=== PATIENT | female | born 1990 | race Caucasian/White ===

== ENCOUNTER 2018-12-03 02:04 | Emergency (ER) | payer MEDICAID, OTHER ==
[~2018-12-03] VITALS: Ht 172.7 cm; Wt 123.0 kg
[~2018-12-03 02:04] MED LIST: IRON1CAP21 PO; PREN-88 PO; PRENATAL
[2018-12-03 02:07] VITALS: BP 137/62
== END 2018-12-03 08:25 | disposition left against medical advice (07) ==
LOC: ER 02:04
DX: R05 Cough (principal); R09.81 Nasal congestion; Z53.21 Procedure and treatment not carried out due to patient leaving prior to being seen by health care provider

== ENCOUNTER 2019-09-08 17:39 | Emergency (ER) | payer MEDICAID, OTHER ==
[~2019-09-08] VITALS: Ht 175.3 cm; Wt 105.0 kg
[2019-09-08] MEDS ORDERED: SODIUM CHLORIDE 0.9% 1,000 ML IV ONE (19:03)
[2019-09-08] MEDS ORDERED: ONDANSETRON HCL 4MG/2ML INJ IV STA (19:03)
[2019-09-08] MEDS ORDERED: ACETAMINOPHEN 325MG TABLET PO STA (19:03)
[2019-09-08 19:45] LABS: BASOPHILS % 0.3 % (0.0-2.0); EOSINOPHILS % 0.9 % (0.0-5.0); HEMATOCRIT. 42.4 % (36.0-48.0); HEMOGLOBIN. 13.9 g/dL (12.0-16.0); LYMPHOCYTES % 20.8 % (20.0-50.0); MEAN CORPUSCULAR HEMOGLOBIN 26.4 pg (28.0-32.0); MEAN CORPUSCULAR VOLUME 80.4 fL (81.0-99.0); MEAN PLATELET VOLUME 9.3 fl (7.4-10.4); MONOCYTES % 7.8 % (2.0-8.0); NEUTROPHILS % 70.2 % (40.0-76.0); PLATELET 247 x1000/uL (130-400); RED BLOOD CELL COUNT 5.28 mill/uL (4.2-5.4); RED CELL DISTRIBUTION WIDTH 14.8 % (11.6-14.6)
[2019-09-08 19:49] LABS: PROTHROMBIN TIME 10.3 sec (9.6-11.0)
[2019-09-08 19:55] LABS: CHLORIDE 107 mEq/L (98-107)
[2019-09-08 20:02] LABS: CLARITY URINE CLEAR (CLEAR); COLOR URINE YELLOW (YELLOW); KETONES URINE TRACE (NEGATIVE); LEUKOCYTE ESTERASE URINE NEGATIVE (NEGATIVE); NITRITE URINE NEGATIVE (NEGATIVE); OCCULT BLOOD URINE NEGATIVE (NEGATIVE); PH URINE 5.5 (4.5-8.0); PROTEIN URINE NEGATIVE (NEGATIVE); SPECIFIC GRAVITY URINE 1.031 (1.005-1.030); UROBILINOGEN URINE 0.2 E.U./dL (0.2-1.0)
[2019-09-08 20:06] LABS: HCG SCREEN POSITIVE
[2019-09-08 20:14] LABS: *AMPHETAMINES SCREEN URINE NEGATIVE (NEGATIVE); *BARBITURATES SCREEN URINE NEGATIVE (NEGATIVE); *BENZODIAZEPINES SCREEN URINE NEGATIVE (NEGATIVE); *COCAINE SCREEN URINE NEGATIVE (NEGATIVE)
[2019-09-08 20:15] LABS: CANNABINOID URINE SCREEN NEGATIVE (NEGATIVE); METHADONE URINE SCREEN NEGATIVE (NEGATIVE); OPIATES URINE SCREEN NEGATIVE (NEGATIVE); PHENCYCLIDINE URINE SCREEN NEGATIVE (NEGATIVE)
[2019-09-08 23:26] VITALS: BP 111/72
== END 2019-09-08 23:58 | disposition home or self-care (01) ==
LOC: ER 17:39
DX: O21.9 Vomiting of pregnancy, unspecified (principal); O26.891 Other specified pregnancy related conditions, first trimester; R51 Headache; J45.909 Unspecified asthma, uncomplicated; Z3A.01 Less than 8 weeks gestation of pregnancy
CPT/HCPCS: 36415; 76705; 76801; 80053; 80305; 81003; 81025; 83690; 84702; 84703; 85025; 85610; 93005; 96361; 96374; 99284; J2405; J7030

== ENCOUNTER → 2020-04-18 | Outpatient (CLI) | payer MEDICAID ==
[~2020-04-18] MED LIST changes: +IBUP-2030 MT
== END | disposition home or self-care (01) ==
LOC: LAB 17:07
PROVIDERS: ATTEND Specialist
DX: Z01.818 Encounter for other preprocedural examination (principal); Z11.59 Encounter for screening for other viral diseases
CPT/HCPCS: C9803; U0003

== ENCOUNTER 2020-04-20 07:22 | Inpatient (IN) | payer MEDICAID ==
[~2020-04-20] VITALS: Ht 172.7 cm; Wt 108.4 kg
[~2020-04-20 07:22] MED LIST changes: -IBUP-2030 MT
[2020-04-20] MEDS ORDERED: LACTATED RINGERS 1,000 ML IV SCH ×2 (08:22→12:45)
[2020-04-20] MEDS ORDERED: DEXT 5%/LR + PITOCIN 20UNITS/L 1,000 ML IV SCH ×2 (08:22→12:43)
[2020-04-20] MEDS ORDERED: CITRIC ACID/SODIUM CITRATE SOLN 30ML UDC PO ONE (08:30)
[2020-04-20] MEDS ORDERED: NALOXONE HCL 0.4 MG/ML 1ML VIAL IM PRN (08:30)
[2020-04-20] MEDS ORDERED: MISOPROSTOL 100MCG TABLET VG SCH (08:30)
[2020-04-20 08:40] LABS: BASOPHILS % 0.2 % (0.0-2.0); EOSINOPHILS % 0.6 % (0.0-5.0); HEMATOCRIT. 35.7 % (36.0-48.0); HEMOGLOBIN. 11.7 g/dL (12.0-16.0); LYMPHOCYTES % 23.4 % (20.0-50.0); MEAN CORPUSCULAR HEMOGLOBIN 25.4 pg (28.0-32.0); MEAN CORPUSCULAR VOLUME 77.6 fL (81.0-99.0); MEAN PLATELET VOLUME 9.4 fl (7.4-10.4); MONOCYTES % 6.2 % (2.0-8.0); NEUTROPHILS % 69.6 % (40.0-76.0); PLATELET 220 x1000/uL (130-400); RED CELL DISTRIBUTION WIDTH 14.5 % (11.6-14.6)
[2020-04-20 08:52] LABS: PARTIAL THROMBOPLASTIN TIME 29.9 sec (23.4-31.0); PROTHROMBIN TIME 10.2 sec (9.6-11.0)
[2020-04-20 08:58] LABS: CLARITY URINE CLOUDY (CLEAR); COLOR URINE DARK YELLOW (YELLOW); KETONES URINE 2+ (NEGATIVE); LEUKOCYTE ESTERASE URINE 1+ (NEGATIVE); NITRITE URINE NEGATIVE (NEGATIVE); OCCULT BLOOD URINE NEGATIVE (NEGATIVE); PH URINE 6.5 (4.5-8.0); PROTEIN URINE TRACE (NEGATIVE); SPECIFIC GRAVITY URINE 1.027 (1.005-1.030)
[2020-04-20 09:11] LABS: *BARBITURATES SCREEN URINE NEGATIVE (NEGATIVE)
[2020-04-20 09:12] LABS: *AMPHETAMINES SCREEN URINE NEGATIVE (NEGATIVE); *BENZODIAZEPINES SCREEN URINE NEGATIVE (NEGATIVE); *COCAINE SCREEN URINE NEGATIVE (NEGATIVE); CANNABINOID URINE SCREEN NEGATIVE (NEGATIVE); METHADONE URINE SCREEN NEGATIVE (NEGATIVE); OPIATES URINE SCREEN NEGATIVE (NEGATIVE); PHENCYCLIDINE URINE SCREEN NEGATIVE (NEGATIVE)
[2020-04-20] MEDS ORDERED: EPHEDRINE SULFATE 50MG/ML VIAL ONE (10:26)
[2020-04-20] MEDS ORDERED: FENTANYL CITRATE/PF 50MCG/ML 2ML VIAL ONE (10:26)
[2020-04-20] MEDS ORDERED: CEFAZOLIN SODIUM 1000MG/VIAL ONE (10:26)
[2020-04-20] MEDS ORDERED: GLYCOPYRROLATE 0.2 MG/ML 2ML VIAL ONE (10:26)
[2020-04-20] MEDS ORDERED: OXYTOCIN 10 UNITS/ML 1ML ONE (10:26)
[2020-04-20] MEDS ORDERED: MORPHINE SULFATE/PF 1MG/ML 10ML AMP ONE (10:26)
[2020-04-20] MEDS ORDERED: ONDANSETRON HCL 4MG/2ML INJ ONE (10:26)
[2020-04-20] MEDS ORDERED: MIDAZOLAM HCL 2 MG/2 ML VIAL ONE (11:07)
[2020-04-20] MEDS ORDERED: METOCLOPRAMIDE HCL 10MG/2ML VIAL ONE (12:12)
[2020-04-20 12:19] LABS: HEPATITIS B SURFACE ANTIGEN NEGATIVE
[2020-04-20] MEDS ORDERED: KETOROLAC 60MG/2ML VIAL IM ONE (12:23)
[2020-04-20] MEDS ORDERED: DIPHENHYDRAMINE 50MG/ML VIAL ONE (12:23)
[2020-04-20] MEDS ORDERED: DIPHENHYDRAMINE 25MG CAPSULE PO PRN (12:45)
[2020-04-20] MEDS ORDERED: LANOLIN OINT 7GM TUBE TOP PRN (12:45)
[2020-04-20] MEDS ORDERED: ACETAMINOPHEN WITH CODEINE 300/30MG TABLET PO PRN (12:45)
[2020-04-20] MEDS ORDERED: ONDANSETRON HCL 4MG/2ML INJ IV PRN (12:45)
[2020-04-20] MEDS ORDERED: HEMORRHOIDAL SUPP PR PRN (12:45)
[2020-04-20] MEDS ORDERED: IBUPROFEN 400MG TABLET PO PRN (12:45)
[2020-04-20] MEDS ORDERED: BISACODYL 10MG SUPP PR PRN (12:45)
[2020-04-20] MEDS ORDERED: HYDROCODONE/ACETAMINOPHEN 5/325MG TABLET PO PRN (12:45)
[2020-04-20] MEDS ORDERED: NALOXONE HCL 0.4 MG/ML 1ML VIAL IV PRN (13:30)
[2020-04-20] MEDS ORDERED: BUTORPHANOL TARTRATE 2 MG/ML VIAL IV PRN (13:30)
[2020-04-20] MEDS ORDERED: DIPHENHYDRAMINE 50MG/ML VIAL IV PRN (13:30)
[2020-04-20 16:00] VITALS: BP 99/50
[2020-04-20] MEDS: KETOROLAC 30MG/ML VIAL IV SCH ×2 (17:12→22:44)
[2020-04-20 17:15] VITALS: BP 102/57
[2020-04-20 20:00] VITALS: BP 102/55
[2020-04-20] MEDS: MAGNESIUM/ALUMINUM HYDROXIDE/SIMETHICONE 30ML UDC PO SCH (21:00)
[2020-04-20] MEDS: SIMETHICONE 80MG TABLET CHEW PO SCH (21:00)
[2020-04-20] MEDS: DOCUSATE SODIUM 100MG CAPSULE PO SCH (21:00)
[2020-04-21] VITALS: BP 105/59
[2020-04-21 04:00] VITALS: BP 101/52
[2020-04-21] MEDS: KETOROLAC 30MG/ML VIAL IV SCH (04:56)
[2020-04-21] MEDS ORDERED: KETOROLAC 30MG/ML VIAL IV SCH (05:00)
[2020-04-21 07:09] LABS: BASOPHILS % 0.3 % (0.0-2.0); EOSINOPHILS % 0.6 % (0.0-5.0); HEMATOCRIT. 30.4 % (36.0-48.0); LYMPHOCYTES % 18.7 % (20.0-50.0); MEAN CORPUSCULAR HEMOGLOBIN 25.6 pg (28.0-32.0); MEAN CORPUSCULAR VOLUME 77.9 fL (81.0-99.0); MEAN PLATELET VOLUME 9.4 fl (7.4-10.4); MONOCYTES % 8.5 % (2.0-8.0); NEUTROPHILS % 71.9 % (40.0-76.0); PLATELET 192 x1000/uL (130-400); RED CELL DISTRIBUTION WIDTH 14.9 % (11.6-14.6)
[2020-04-21 08:00] VITALS: BP 94/56
[2020-04-21] MEDS: FERROUS SULFATE 325MG TABLET PO SCH ×2 (08:04→15:54)
[2020-04-21] MEDS: MAGNESIUM/ALUMINUM HYDROXIDE/SIMETHICONE 30ML UDC PO SCH ×4 (08:05→21:12)
[2020-04-21] MEDS: SIMETHICONE 80MG TABLET CHEW PO SCH ×3 (08:05→21:12)
[2020-04-21 16:03] VITALS: BP 112/67
[2020-04-21 20:00] VITALS: BP 113/70
[2020-04-21] MEDS: DOCUSATE SODIUM 100MG CAPSULE PO SCH (21:12)
[2020-04-22 04:30] VITALS: BP 118/58
[2020-04-22] MEDS ORDERED: IBUP-2030 MT (05:54)
[2020-04-22 08:22] VITALS: BP 101/48
[2020-04-22] MEDS: SIMETHICONE 80MG TABLET CHEW PO SCH (09:13)
[2020-04-22] MEDS: FERROUS SULFATE 325MG TABLET PO SCH (09:14)
== END 2020-04-22 10:30 | disposition home or self-care (01) | DRG 540 ==
LOC: OBSVTOIN 07:22 → 8 EST LDRP 07:22 → 8EST 15:35
PROVIDERS: ADMIT Specialist; ATTEND Specialist
PROC: 10D00Z1 Extraction of Products of Conception, Low, Open Approach (ICD-10-PCS; principal; 2020-04-20)
DX: O99.02 Anemia complicating childbirth (principal); O34.211 Maternal care for low transverse scar from previous cesarean delivery; O99.214 Obesity complicating childbirth; D62 Acute posthemorrhagic anemia; O99.344 Other mental disorders complicating childbirth; F41.9 Anxiety disorder, unspecified; Z3A.39 39 weeks gestation of pregnancy; Z37.0 Single live birth
CPT/HCPCS: 36415; 80305; 81003; 85025; 86592; 86703; 86762; 86850; 86900; 86920; 87340; 88307; J0690; J1200; J1885; J2250; J2274; J2405; J2590; J2765; J3010; J3490; J7120

== ENCOUNTER 2020-05-02 06:02 | Day surgery (SDC) | payer MEDICAID ==
[~2020-05-02] VITALS: Ht 172.7 cm; Wt 74.0 kg
[~2020-05-02 06:02] MED LIST changes: +IBUP-2030 MT
[2020-05-02] MEDS ORDERED: SODIUM CHLORIDE 0.9% 1,000 ML IV ONE ×2 (06:30→10:35)
[2020-05-02 07:48] LABS: BASOPHILS % 0.3 % (0.0-2.0); EOSINOPHILS % 0.8 % (0.0-5.0); HEMATOCRIT. 39.7 % (36.0-48.0); HEMOGLOBIN. 12.8 g/dL (12.0-16.0); LYMPHOCYTES % 17.3 % (20.0-50.0); MEAN CORPUSCULAR HEMOGLOBIN 25.4 pg (28.0-32.0); MEAN CORPUSCULAR VOLUME 78.8 fL (81.0-99.0); MEAN PLATELET VOLUME 9.7 fl (7.4-10.4); NEUTROPHILS % 75.6 % (40.0-76.0); PLATELET 285 x1000/uL (130-400); RED BLOOD CELL COUNT 5.04 mill/uL (4.2-5.4); RED CELL DISTRIBUTION WIDTH 15.2 % (11.6-14.6)
[2020-05-02 07:54] LABS: CHLORIDE 109 mEq/L (98-107)
[2020-05-02 08:04] LABS: B-HCG QUANTITATIVE 23 mIU/mL (<3)
[2020-05-02] MEDS ORDERED: CEFAZOLIN 1000MG PREMIX 50 ML IV SCH (09:30)
[2020-05-02] MEDS ORDERED: METHYLERGONOVINE MALEATE 0.2 MG/ML ONE (10:17)
[2020-05-02] MEDS ORDERED: METH PO (10:43)
[2020-05-02] MEDS ORDERED: ONDANSETRON HCL 4MG/2ML INJ IV PRN ×2 (10:45)
[2020-05-02] MEDS ORDERED: HYDROMORPHONE HCL/PF 2MG/ML CPJ IV PRN (10:45)
[2020-05-02] MEDS ORDERED: KETOROLAC 60MG/2ML VIAL IM NR (10:45)
[2020-05-02] MEDS ORDERED: MORPHINE SULFATE 2 MG/ML CPJ (NOT FOR IM USE) IV PRN (10:45)
[2020-05-02] MEDS ORDERED: MEPERIDINE HCL/PF 25MG/ML CPJ IV PRN ×2 (10:45)
[2020-05-02 11:02] VITALS: BP 140/70
[2020-05-02] MEDS ORDERED: SODIUM CHLORIDE 0.9% INJ 3ML FLUSH IVF SCH (14:00)
== END 2020-05-02 13:00 | disposition home or self-care (01) ==
LOC: ER 06:02 → OR 09:30
PROVIDERS: ATTEND Specialist
DX: O02.89 Other abnormal products of conception (principal); Z79.899 Other long term (current) drug therapy; Z98.890 Other specified postprocedural states
CPT/HCPCS: 36415; 59812; 76830; 76856; 80053; 81025; 84702; 85025; 86850; 86900; 86901; 88305; 93005; 96374; 96375; 99285; J0330; J2175; J2210; J2250; J2405; J2704; J2765; J3010; J3490; J7030

== ENCOUNTER 2020-06-16 20:03 | Emergency (ER) | payer MEDICAID ==
[~2020-06-16] VITALS: Ht 172.7 cm; Wt 105.0 kg
[~2020-06-16 20:03] MED LIST changes: +METH PO; -PRENATAL
[2020-06-17 01:23] LABS: CHLORIDE 107 mEq/L (98-107)
[2020-06-17 01:27] LABS: BASOPHILS % 0.3 % (0.0-2.0); EOSINOPHILS % 0.8 % (0.0-5.0); HEMATOCRIT. 38.9 % (36.0-48.0); HEMOGLOBIN. 12.6 g/dL (12.0-16.0); LYMPHOCYTES % 27.8 % (20.0-50.0); MEAN CORPUSCULAR VOLUME 77.2 fL (81.0-99.0); MEAN PLATELET VOLUME 9.4 fl (7.4-10.4); MONOCYTES % 6.7 % (2.0-8.0); NEUTROPHILS % 64.4 % (40.0-76.0); PLATELET 262 x1000/uL (130-400); RED BLOOD CELL COUNT 5.03 mill/uL (4.2-5.4); RED CELL DISTRIBUTION WIDTH 15.1 % (11.6-14.6)
[2020-06-17] MEDS ORDERED: SODIUM CHLORIDE 0.9% 1,000 ML IV ONE (01:57)
[2020-06-17] MEDS ORDERED: IOHEXOL-350 100 ML BOTTLE ONE (05:54)
[2020-06-17 06:26] VITALS: BP 142/71
== END 2020-06-17 06:27 | disposition home or self-care (01) ==
LOC: ER 20:03
DX: R07.89 Other chest pain (principal); J45.909 Unspecified asthma, uncomplicated; Z79.899 Other long term (current) drug therapy; Z98.890 Other specified postprocedural states
CPT/HCPCS: 36415; 71045; 71275; 80053; 81025; 84484; 85025; 85379; 93005; 96360; 99285; J7030; Q9967